=== PATIENT | male | born 1945 | race Caucasian/White ===

== ENCOUNTER 2018-04-23 07:03 | Day surgery (SDC) | payer OTHER, BC ==
[2018-04-21 17:38] VITALS: BMI 27.1
[2018-04-23] MEDS ORDERED: NEO/POLYMYX B SULF/DEXAMETH OPHTHALMIC 5ML BOTTLE ONE (07:24)
[2018-04-23] MEDS ORDERED: CARBACHOL 0.01% INTRA-OCULAR 1.5 ML VIAL ONE (07:24)
[2018-04-23] MEDS ORDERED: TETRACAINE 0.5% OPHTH SOLN 2 ML BOTTLE ONE (07:24)
[2018-04-23] MEDS ORDERED: BSS (NA/CA/MG/K) BALANCED SALT SOLUTION OPHTH SOLN 15 ML BOTTLE ONE (07:24)
[2018-04-23] MEDS ORDERED: LIDOCAINE 1% P/F 10 MG/ML VIAL ONE (07:24)
[2018-04-23] MEDS: CIPROFLOXACIN 0.3% EYE DROPS 5 ML BOTTLE ONE ×3 (07:40→07:50)
[2018-04-23] MEDS: TROPICAMIDE 1% OPHTH SOLN 15 ML BOTTLE ONE ×3 (07:40→07:50)
[2018-04-23] MEDS: CYCLOPENTOLATE 2% OPHTH SOLN 2 ML BOTTLE ONE ×3 (07:40→07:50)
[2018-04-23] MEDS: PHENYLEPHRINE 2.5% OPHTH SOLN 15 ML BOTTLE ONE ×3 (07:40→07:50)
[2018-04-23 07:44] VITALS: TEMP 97.6
[2018-04-23] MEDS ORDERED: MIDAZOLAM HCL 2 MG/2 ML SINGLE DOSE VIAL ONE ×2 (08:50→09:05)
--- NOTE | 2018-04-23 10:24 | OP ---
DATE OF OPERATION: 04/23/2018 OPERATIVE PROCEDURE: Lens Phacoemulsification with Posterior Chamber Intraocular Lens Placement Left Eye PREOPERATIVE DIAGNOSIS: Visually Significant Cataract of Left Eye POSTOPERATIVE DIAGNOSIS: Visually Significant Cataract of Left Eye SURGEON: Johan Jimenez M.D. ANESTHESIA: MAC PROCEDURE: The patient was brought to the operating room and placed under monitored anesthesia care by Anesthesia. A drop of Tetracaine was then placed over the left eye. The patient was then prepped and draped in the usual sterile manner. A speculum was then placed over the left eye. The eye was then well irrigated with copious amounts of BSS (balanced salt solution). The operating microscope was then moved into position. A paracentesis was performed using a 15 degree blade. At this point 0.5 mL of 1% preservative-free lidocaine was injected into the anterior chamber. Amvisc plus was then injected into the anterior chamber. A clear corneal incision was then formed using a 2.2 mm keratome. A capsulorrhexis was then performed in a continuous circular fashion beginning with a cystotome, completed with an Utratas forceps. Hydrodissection was then performed using BSS on a cannula. The phaco probe was then introduced through the corneal wound and the cataract was removed using the phaco chop technique. Approximately 3 seconds of absolute phaco time was used. The remaining cortex was then removed using irrigation and aspiration with an I/A probe. The capsule was then filled with regular Amvisc and the capsule was noted to be intact. A previously selected foldable posterior chamber intraocular lens was then injected into the capsule through the corneal wound using a lens injector. It was then dialed into position using a Sinskey hook. The Amvisc was then removed using irrigation and aspiration. Miostat was then injected through the paracentesis to constrict the pupil. The paracentesis and corneal wound were then hydrated and noted to be water tight. A drop of Maxitrol was then placed over the eye. The speculum was removed and clear shield was taped over the eye. The patient tolerated the procedure well and there were no surgical complications. The patient was asked to follow up in my office the next day. JOHAN JIMENEZ M.D. [id number]
[2018-04-23 10:36] VITALS: BP 130/90; PULSE 69
[2018-04-23] MEDS ORDERED: ACETAMINOPHEN 325 MG TABLET (FP) PO PRN (12:54)
[2018-04-23] MEDS ORDERED: ONDANSETRON 4 MG/2 ML VIAL IVPUSH PRN (12:54)
[2018-04-23] MEDS ORDERED: LACTATED RINGERS SOLUTION 1,000 ML IV SCH (13:00)
== END 2018-04-23 10:10 | disposition home or self-care (01) ==
LOC: FASU 07:03
PROVIDERS: ATTEND Ophthalmology
PROC: 08RK3JZ Replacement of Left Lens with Synthetic Substitute, Percutaneous Approach (ICD-10-PCS; principal; 2018-04-23 09:03)
DX: H26.8 Other specified cataract (principal)

== ENCOUNTER 2018-05-28 08:27 | Day surgery (SDC) | payer OTHER, BC ==
[2018-05-19 16:20] VITALS: BMI 26.4
[2018-05-28] MEDS: PHENYLEPHRINE 2.5% OPHTH SOLN 15 ML BOTTLE ONE ×3 (09:00→09:15)
[2018-05-28] MEDS: TROPICAMIDE 1% OPHTH SOLN 15 ML BOTTLE ONE ×3 (09:00→09:15)
[2018-05-28] MEDS: CYCLOPENTOLATE 2% OPHTH SOLN 2 ML BOTTLE ONE ×3 (09:00→09:15)
[2018-05-28] MEDS: CIPROFLOXACIN 0.3% EYE DROPS 5 ML BOTTLE ONE ×3 (09:00→09:15)
[2018-05-28 09:20] VITALS: TEMP 97.5
[2018-05-28] MEDS ORDERED: BSS (NA/CA/MG/K) BALANCED SALT SOLUTION OPHTH SOLN 15 ML BOTTLE ONE ×2 (09:22→09:23)
[2018-05-28] MEDS ORDERED: CARBACHOL 0.01% INTRA-OCULAR 1.5 ML VIAL ONE (09:22)
[2018-05-28] MEDS ORDERED: LIDOCAINE 1% P/F 10 MG/ML VIAL ONE (09:22)
[2018-05-28] MEDS ORDERED: TETRACAINE 0.5% OPHTH SOLN 2 ML BOTTLE ONE (09:22)
[2018-05-28] MEDS ORDERED: NEO/POLYMYX B SULF/DEXAMETH OPHTHALMIC 5ML BOTTLE ONE (09:22)
[2018-05-28] MEDS ORDERED: MIDAZOLAM HCL 2 MG/2 ML SINGLE DOSE VIAL ONE (10:29)
--- NOTE | 2018-05-28 11:28 | OP ---
DATE OF OPERATION: 05/28/2018 OPERATIVE PROCEDURE: Lens Phacoemulsification with Posterior Chamber Intraocular Lens Placement, Right Eye PREOPERATIVE DIAGNOSIS: Visually Significant Cataract of Right Eye POSTOPERATIVE DIAGNOSIS: Visually Significant Cataract of Right Eye SURGEON: Johan Jimenez M.D. ANESTHESIA: MAC ANESTHESIOLOGIST: PROCEDURE: The patient was brought to the operating room and placed under monitored anesthesia care by Anesthesia. A drop of Tetracaine was then placed over the right eye. The patient was then prepped and draped in the usual sterile manner. A speculum was then placed over the right eye. The eye was then well irrigated with copious amounts of BSS (balanced salt solution). The operating microscope was then moved into position. A paracentesis was performed using a 15 degree blade. At this point 0.5 mL of 1% preservative free-lidocaine was injected into the anterior chamber. Amvisc plus was then injected into the anterior chamber. A clear corneal incision was then formed using a 2.2 mm keratome. A capsulorrhexis was then performed in a continuous circular fashion beginning with a cystotome completed with an Utratas forceps. Hydrodissection was then performed using BSS on a cannula. The phaco probe was then introduced through the corneal wound and the cataract was removed using the phaco chop technique. Approximately 3 seconds of absolute phaco time was used. The remaining cortex was then removed using irrigation and aspiration with an I/A probe. The capsule was then filled with regular Amvisc and the capsule was noted to be intact. A previously selected foldable posterior chamber intraocular lens was then injected into the capsule through the corneal wound using a lens injector. It was then dialed into position using a Sinskey hook. The Amvisc was then removed using irrigation and aspiration. Miostat was then injected through the paracentesis to constrict the pupil. The paracentesis and corneal wound were then hydrated and noted to be water tight. A drop of Maxitrol was then placed over the eye. The speculum was removed and clear shield was taped over the eye. The patient tolerated the procedure well and there were no surgical complications. The patient was asked to follow up in my office the next day. JOHAN JIMENEZ M.D. [id number]
[2018-05-28 11:38] VITALS: BP 118/62; PULSE 67
== END 2018-05-28 11:40 | disposition home or self-care (01) ==
LOC: FASU 08:27
PROVIDERS: ATTEND Ophthalmology
PROC: 08RJ3JZ Replacement of Right Lens with Synthetic Substitute, Percutaneous Approach (ICD-10-PCS; principal; 2018-05-28 10:45)
DX: H26.8 Other specified cataract (principal)

== ENCOUNTER 2018-12-20 03:05 | Emergency (ER) | payer OTHER, BC ==
--- NOTE | 2018-12-20 03:08 | PDOC ---
History of Present Illness - General Chief Complaint: Urinary Problem Stated Complaint: URINARY PROBLEM Time Seen by Provider: 12/20/18 03:07 - History of Present Illness Initial Comments: 12/20/18 03:15 Pt presents to the ED complaining of the inability to urinate since 6 pm. Patient had a urolift done by Dr. Luna and was discharged with almanza in place. Almanza was removed this afternoon. Patient had small amount of urine earlier in the day, but hasn't been able to urinate since 6 pm. He states that he has the urge to urinate but is unable to. Now is complaining of some abdominal distention and discomfort. Denies fever, nausea or vomiting. Did have hematuria after removal of the almanza. Past History - Past Medical History Allergies/Adverse Reactions: Allergies Allergy/AdvReac Type Severity Reaction Status Date / Time cinnamon Allergy Rash Verified 04/23/18 07:57 No Known Drug Allergies Allergy Verified 04/23/18 07:57 Home Medications: Ambulatory Orders Aspirin [ASA -] 81 mg PO DAILY 07/24/12 B-Complex with Vitamin C [Vitamin B-Complex & C] 1 each PO DAILY 07/24/12 Cholecalciferol (Vitamin D3) [Vitamin D3] 2,000 unit PO DAILY 07/24/12 Garlic 1 each PO DAILY 07/24/12 Lactobacillus Acidophilus [Acidophilus] 1 each PO DAILY 07/24/12 Metoprolol Succinate [Toprol XL -] 25 mg PO DAILY 07/24/12 Docosahexanoic Acid/Epa [Fish Oil Softgel] 1 each PO DAILY 04/27/13 Phytosterol [Heart Health Advantage] 400 mg PO BID 04/27/13 Plant Stanol Christa [Cholest Off] 900 mg PO BID 04/27/13 Glucosamine Sulfate Dipot Chlr [Glucosamine] 1,000 mg PO BID 04/21/18 Mirabegron [Myrbetriq] 50 mg PO DAILY 04/21/18 Omeprazole 40 mg PO DAILY 04/21/18 Potassium 99 mg PO DAILY 04/21/18 Rosuvastatin Calcium [Crestor] 5 mg PO DAILY 04/21/18 Tamsulosin HCl 0.4 mg PO DAILY 04/21/18 Ubidecarenone [Coq10] 50 mg PO DAILY 04/21/18 Anemia: No Asthma: No Cancer: No Cardiac Disorders: Yes (IA 05/2010, STENT X 1-LAST STRESS 2010) CVA: No COPD: No CHF: No Dementia: No Diabetes: No GI Disorders: Yes (GERD) Disorders: Yes (bph) HTN: Yes Hypercholesterolemia: Yes Liver Disease: No Seizures: No Thyroid Disease: No - Surgical History Abdominal Surgery: No Appendectomy: No Cardiac Surgery: Yes (CARDIAC STENT X 1 2010) Cholecystectomy: No Lung Surgery: No Neurologic Surgery: No Orthopedic Surgery: Yes (RIGHT KNEE ARTHROSCOPY-10 YRS AGO-) - Suicide/Smoking/Psychosocial Hx Smoking History: Never smoked Have you smoked in the past 12 months: No Hx Alcohol Use: No Drug/Substance Use Hx: No Substance Use Type: None Hx Substance Use Treatment: No Review of Systems - Review of Systems Able to Perform ROS?: Yes Is the patient limited [place] proficient: No Constitutional: No: Symptoms Reported, See HPI, Chills, Diaphoresis, Fever, Loss of Appetite, Malaise, Night Sweats, Weakness, Weight Stable, Unintentional Wgt. Loss, Unexplained wgt Loss, Other HEENTM: No: Symptoms Reported, See HPI, Eye Pain, Blurred Vision, Tearing, Recent change in vision, Double Vision, Cataracts, Ear Pain, Ocular Prothesis, Ear Discharge, Nose Pain, Nose Congestion, Tinnitus, Nose Bleeding, Hearing Loss , Throat Pain, Throat Swelling, Mouth Pain, Dental Problems, Difficulty Swallowing, Mouth Swelling, Other Respiratory: No: Symptoms reported, See HPI, Cough, Orthopnea, Shortness of Breath, SOB with Exertion, SOB at Rest, Stridor, Wheezing, Productive cough, Hemoptysis, Other Cardiac (ROS): No: Symptoms Reported, See HPI, Chest Pain, Edema, Irregular Heart Rate, Lightheadedness, Palpitations, Syncope, Chest Tightness, Other ABD/GI: Yes: Abdominal Distended. No: See HPI, Abd. Pain w/ defecation, Blood Streaked Bowels, Constipated, Diarrhea, Difficulty Swallowing, Nausea, Poor Appetite, Poor Fluid Intake, Rectal Bleeding, Vomiting, Indigestion, Abdominal cramping, Tarry Stools, Other : Yes: See HPI Musculoskeletal: No: Symptoms Reported, See HPI, Back Pain, Gout, Joint Pain, Joint Swelling, Muscle Pain, Muscle Weakness, Neck Pain, Joint Stiffness, Other Integumentary: No: Symptoms Reported, See HPI, Bruising, Change in Color, Change in Hair/Nails, Dryness, Erythema, Flushing, Lesions, Lumps, Pallor, Pruritus, Rash, Sweating, Other Neurological: No: Symptoms reported, See HPI, Headache, Numbness, Paresthesia, Pre-Existing Deficit, Seizure, Tingling, Tremors, Weakness, Unsteady Gait, Ataxia, Dizziness, Other Psychiatric: No: Anxiety, Depression, Frequent Crying, Stressors, Sleep Pattern Change, Emotional Problems, Mood Swings, Change in Appetite, Other All Other Systems: Reviewed and Negative *Physical Exam - Physical Exam Comments: 12/20/18 03:20 Gen: alert, NAD CV: rrr no murmurs pulm: cta b/l abdomen: soft, non tender, non distended without guarding or rebound Neuro: alert and oriented x 3, normal mood and affect. ext: no deformity, full ROM, ambulatory with normal gait skin: warm and dry, no rash, pallor or jaundice Medical Decision Making - Medical Decision Making 12/20/18 03:21 Pt presents to the ED complaining of urinary retention since 6 pm after almanza d/ c'd in urologist's office. Will place almanza in the ED and measure urine output. 12/20/18 03:34 Almanza placed with aproximately 300 ccc in urine drained immediately. urine is dark red, but with no clots. will discharge home with leg bag. *DC/Admit/Observation/Transfer Diagnosis at time of Disposition: Urinary retention - Discharge Dispostion Disposition: HOME Condition at time of disposition: Good Decision to Admit order: No - Referrals - Patient Instructions Printed Discharge Instructions: DI for Urinary Retention in Men Additional Instructions: you came to the ED because you were unable to urinate. We placed a catheter in the ED. you should follow up with Dr. Luna on Saturday--he will decide whether the catheter can come out. Return to the ED immediately if the catheter gets pulled out or stops draining urine. Return to the ED for fever, abdominal pain, other new or worsening symptoms. - Post Discharge Activity
[2018-12-20 03:15] VITALS: BP 124/65; PULSE 89; TEMP 98.1; BMI 33.0
== END 2018-12-20 03:58 | disposition home or self-care (01) ==
LOC: FER 03:05
PROC: 0T9B70Z Drainage of Bladder with Drainage Device, Via Natural or Artificial Opening (ICD-10-PCS; principal; 2018-12-20)
DX: R33.9 Retention of urine, unspecified (principal); Z95.5 Presence of coronary angioplasty implant and graft; I25.2 Old myocardial infarction; K21.9 Gastro-esophageal reflux disease without esophagitis; N40.0 Benign prostatic hyperplasia without lower urinary tract symptoms; I10 Essential (primary) hypertension; E78.00 Pure hypercholesterolemia, unspecified
CPT/HCPCS: 99282-25

== ENCOUNTER 2018-12-20 19:52 | Emergency (ER) | payer OTHER, BC ==
[2018-12-20 20:06] VITALS: BP 145/94; PULSE 90; TEMP 98.1; BMI 27.1
--- NOTE | 2018-12-21 00:09 | PDOC ---
Documentation entered by Chela Castro SCRIBE, acting as scribe for Marsha Lay MD. Marsha Lay MD: This documentation has been prepared by the vineetibeMatthew Lincy, SCRIBE, under my direction and personally reviewed by me in its entirety. I confirm that the documentation accurately reflects all work, treatment, procedures, and medical decision making performed by me. History of Present Illness - General Chief Complaint: Urinary Catheter Problem Stated Complaint: WARREN CATHETER PROBLEM Time Seen by Provider: 12/20/18 19:53 History Source: Patient Exam Limitations: No Limitations - History of Present Illness Initial Comments: 12/20/18 21:12 The patient is a 73-year-old male with a past medical history significant for IA s/p stent, BPH, HTN, HLD, s/p urolift (12/[address] Godinez) presents to the emergency department with difficulty urinating since this morning. The patient reports he had a urolift on Saturday, s/p placed on a leg bag, which was removed on Saturday morning. He was able to void x2 since removing the bag, however at 6:00 pm that day he noticed some clots in the urine and since noticing the clots, he was unable to urinate. The patient was seen at the ER at 2:00 am, for difficulty urinating and was placed on a leg bag, with improvement. The patient reports relief until he emptied the bag in the morning , and noticed some dysuria. The patient reports since emptying the bag, he hasn t voided. The patient reports associated symptoms of pelvic pressure. Denies new back pain, fever, or chills. Past History - Past Medical History Allergies/Adverse Reactions: Allergies Allergy/AdvReac Type Severity Reaction Status Date / Time cinnamon Allergy Rash Verified 12/20/18 19:54 No Known Drug Allergies Allergy Verified 12/20/18 19:54 Home Medications: Ambulatory Orders B-Complex with Vitamin C [Vitamin B-Complex & C] 1 each PO DAILY 07/24/12 Cholecalciferol (Vitamin D3) [Vitamin D3] 2,000 unit PO DAILY 07/24/12 Garlic 1 each PO DAILY 07/24/12 Lactobacillus Acidophilus [Acidophilus] 1 each PO DAILY 07/24/12 Metoprolol Succinate [Toprol XL -] 25 mg PO DAILY 07/24/12 Docosahexanoic Acid/Epa [Fish Oil Softgel] 1 each PO DAILY 04/27/13 Phytosterol [Heart Health Advantage] 400 mg PO BID 04/27/13 Plant Stanol Christa [Cholest Off] 900 mg PO BID 04/27/13 Glucosamine Sulfate Dipot Chlr [Glucosamine] 1,000 mg PO BID 04/21/18 Mirabegron [Myrbetriq] 50 mg PO DAILY 04/21/18 Omeprazole 40 mg PO DAILY 04/21/18 Rosuvastatin Calcium [Crestor] 5 mg PO DAILY 04/21/18 Tamsulosin HCl 0.4 mg PO DAILY 04/21/18 Ubidecarenone [Coq10] 50 mg PO DAILY 04/21/18 Anemia: No Asthma: No Cancer: No Cardiac Disorders: Yes (IA 05/2010, STENT X 1-LAST STRESS 2010) CVA: No COPD: No CHF: No Dementia: No Diabetes: No GI Disorders: Yes (GERD) Disorders: Yes (bph) HTN: Yes Hypercholesterolemia: Yes Liver Disease: No Seizures: No Thyroid Disease: No - Surgical History Abdominal Surgery: No Appendectomy: No Cardiac Surgery: Yes (CARDIAC STENT X 1 2010) Cholecystectomy: No Lung Surgery: No Neurologic Surgery: No Orthopedic Surgery: Yes (RIGHT KNEE ARTHROSCOPY-10 YRS AGO-) - Suicide/Smoking/Psychosocial Hx Smoking History: Never smoked Have you smoked in the past 12 months: No Information on smoking cessation initiated: No Hx Alcohol Use: No Drug/Substance Use Hx: No Substance Use Type: None Hx Substance Use Treatment: No Review of Systems - Review of Systems Able to Perform ROS?: Yes Comments:: 12/20/18 21:12 Constitutional - Pt denies Fever, Chills, weakness, HEENT: denies vision changes, sore throat Respiratory: Denies cough, sob, hemoptysis Cardiac: denies chest pain, palpitations, lightheadedness, leg swelling Abd/GI: denies abd pain, nausea, vomiting, blood per rectum, melena, diarrhea : +difficulty voiding. denies dysuria, frequency, discharge Musculoskeletal - denies back pain, joint swelling skin - denies bruising, erythema, rash neurological: denies headache, numbness, focal weakness, tingling, ataxia, weakness hematologic: denies anemia, easy bruising, easy bleeding *Physical Exam - Vital Signs Last Vital Signs Temp Pulse Resp BP Pulse Ox 98.1 F 90 18 145/94 96 12/20/18 19:52 12/20/18 19:52 12/20/18 19:52 12/20/18 19:52 12/20/18 19:52 - Physical Exam Comments: 12/20/18 21:18 Physical exam performed after irrigation of the catheter with subsequent relief of urinary retention. GENERAL: The patient is awake, alert, and fully oriented, in no acute distress. HEAD: Normal with no signs of trauma. EYES: Pupils equal, round and reactive to light, extraocular movements intact, sclera anicteric, conjunctiva clear with no pallor. ENT: Ears normal, nares patent. Moist mucous membranes. NECK: Normal range of motion, supple. LUNGS: Breath sounds equal, clear to auscultation bilaterally. HEART: Regular rate and rhythm. ABDOMEN: +soft, nondistended without tenderness or masses. EXTREMITIES: Normal range of motion, no edema. no clubbing or cyanosis. No cords , erythema, or tenderness. NEUROLOGICAL: Normal speech, normal gait. PSYCH: Normal mood, normal affect. SKIN: Warm, Dry, normal turgor, no rashes or lesions noted. Medical Decision Making - Medical Decision Making As noted above, this 73-year-old man, a few days s/p urolift procedure returns with urinary retention. Patient was seen here last night with urinary retention and catheter was placed with relief of his symptoms. He did well for most of today with recurrence of sensation of inability to empty his bladder starting several hours ago. He had noted some blood clots in the bag. He denies abdominal pain/back pain/fever/nausea. He is currently on antibiotics after his procedure (cannot recall the name of the antibiotic). Exam as noted. Under sterile conditions, catheter was irrigated with sterile normal saline by nursing staff with passage of some clots. After this, patient had resumption of normal urinary flow and resolution of his symptoms. Approximately 300 mL of urine was obtained in the leg bag attached to the catheter. Patient will be discharged with instructions to continue drinking plenty of water and taking his medications as prescribed. He should return to the emergency room if he has any recurrent urinary retention at which time the catheter would probably need to be replaced. Also, he has development of abdominal or back pain/nausea or vomiting/fever, he should return to the ER. Otherwise, he should follow-up with Dr. Luna on December 22 *DC/Admit/Observation/Transfer Diagnosis at time of Disposition: Urinary retention - Discharge Dispostion Disposition: HOME Condition at time of disposition: Stable - Referrals Referrals: Benton Godinez MD., MD [Staff Physician] - - Patient Instructions Printed Discharge Instructions: DI for Urinary Retention in Men Additional Instructions: continue antibiotic as previously prescribed Drink plenty of water Return to ER if you have discomfort/difficulty passing urine follow-up with /call office on December 22 as discussed - Post Discharge Activity
== END 2018-12-20 21:09 | disposition home or self-care (01) ==
LOC: FER 19:52
DX: Z46.6 Encounter for fitting and adjustment of urinary device (principal); R33.9 Retention of urine, unspecified; I10 Essential (primary) hypertension; E78.00 Pure hypercholesterolemia, unspecified; N40.0 Benign prostatic hyperplasia without lower urinary tract symptoms; I25.2 Old myocardial infarction; Z95.5 Presence of coronary angioplasty implant and graft
CPT/HCPCS: 99283-25

== ENCOUNTER 2018-12-21 13:55 | Emergency (ER) | payer OTHER, BC ==
--- NOTE | 2018-12-21 13:58 | PDOC ---
History of Present Illness - General Chief Complaint: Urinary Catheter Problem Stated Complaint: WARREN CATHETER PROBLEM Time Seen by Provider: 12/21/18 13:57 History Source: Patient Exam Limitations: No Limitations Past History - Past Medical History Allergies/Adverse Reactions: Allergies Allergy/AdvReac Type Severity Reaction Status Date / Time cinnamon Allergy Rash Verified 12/21/18 13:56 No Known Drug Allergies Allergy Verified 12/21/18 13:56 Home Medications: Ambulatory Orders B-Complex with Vitamin C [Vitamin B-Complex & C] 1 each PO DAILY 07/24/12 Cholecalciferol (Vitamin D3) [Vitamin D3] 2,000 unit PO DAILY 07/24/12 Garlic 1 each PO DAILY 07/24/12 Lactobacillus Acidophilus [Acidophilus] 1 each PO DAILY 07/24/12 Metoprolol Succinate [Toprol XL -] 25 mg PO DAILY 07/24/12 Docosahexanoic Acid/Epa [Fish Oil Softgel] 1 each PO DAILY 04/27/13 Phytosterol [Heart Health Advantage] 400 mg PO BID 04/27/13 Plant Stanol Christa [Cholest Off] 900 mg PO BID 04/27/13 Glucosamine Sulfate Dipot Chlr [Glucosamine] 1,000 mg PO BID 04/21/18 Mirabegron [Myrbetriq] 50 mg PO DAILY 04/21/18 Omeprazole 40 mg PO DAILY 04/21/18 Rosuvastatin Calcium [Crestor] 5 mg PO DAILY 04/21/18 Tamsulosin HCl 0.4 mg PO DAILY 04/21/18 Ubidecarenone [Coq10] 50 mg PO DAILY 04/21/18 Anemia: No Asthma: No Cancer: No Cardiac Disorders: Yes (ID 05/2010, STENT X 1-LAST STRESS 2010) CVA: No COPD: No CHF: No Dementia: No Diabetes: No GI Disorders: Yes (GERD) Disorders: Yes (bph) HTN: Yes Hypercholesterolemia: Yes Liver Disease: No Seizures: No Thyroid Disease: No - Surgical History Abdominal Surgery: No Appendectomy: No Cardiac Surgery: Yes (CARDIAC STENT X 1 2010) Cholecystectomy: No Lung Surgery: No Neurologic Surgery: No Orthopedic Surgery: Yes (RIGHT KNEE ARTHROSCOPY-10 YRS AGO-) - Suicide/Smoking/Psychosocial Hx Smoking History: Never smoked Have you smoked in the past 12 months: No Hx Alcohol Use: No Drug/Substance Use Hx: No Substance Use Type: None Hx Substance Use Treatment: No *DC/Admit/Observation/Transfer - Discharge Dispostion Condition at time of disposition: Stable - Referrals - Patient Instructions - Post Discharge Activity
[2018-12-21 14:19] VITALS: BP 130/84; PULSE 87; TEMP 98.5; BMI 27.1
--- NOTE | 2018-12-21 14:43 | PDOC ---
Documentation entered by Garret Hernandez SCRIBE, acting as scribe for Jeannine Torres MD. Jeannine Torres MD: This documentation has been prepared by the David medina Nirvannie, SCRIBE, under my direction and personally reviewed by me in its entirety. I confirm that the documentation accurately reflects all work, treatment, procedures, and medical decision making performed by me. History of Present Illness - General Chief Complaint: Urinary Catheter Problem Stated Complaint: WARREN CATHETER PROBLEM Time Seen by Provider: 12/21/18 13:57 History Source: Patient Exam Limitations: No Limitations - History of Present Illness Initial Comments: 12/21/18 14:36 The patient is a 73 year old male, with a significant past medical history of IA (s/p cardiac stenting), BPH (s/p urolift 12/[address] Godinez), HTN, HLD, who presents to the emergency department with, urinary retention. As per patient , after his surgery 5 days ago he had a leg bag placed which was removed 3 days ago and replaced 2 days ago after a similar episode of urinary retention and then a repeat episode last night. Patient notes observing blood clots in his bag last night, however, this morning he was unable to void once again. Patient endorses associated dysuria and urgency, prompting his arrival to the ED. He denies any recent fevers, chills, headache, or dizziness. He denies any recent nausea, vomiting, diarrhea, or constipation. He denies any recent chest pain or shortness of breath. Allergies: Cinnamon. Past surgical history: Urolift (11/2018), Cardiac Stenting, and Right Knee Arthroscopy Social History: Nonsmoker. Denies EtOH use and recreational drug use. Urologist: Dr. Godinez Past History - Past Medical History Allergies/Adverse Reactions: Allergies Allergy/AdvReac Type Severity Reaction Status Date / Time cinnamon Allergy Rash Verified 12/21/18 13:56 No Known Drug Allergies Allergy Verified 12/21/18 13:56 Home Medications: Ambulatory Orders B-Complex with Vitamin C [Vitamin B-Complex & C] 1 each PO DAILY 07/24/12 Cholecalciferol (Vitamin D3) [Vitamin D3] 2,000 unit PO DAILY 07/24/12 Garlic 1 each PO DAILY 07/24/12 Lactobacillus Acidophilus [Acidophilus] 1 each PO DAILY 07/24/12 Metoprolol Succinate [Toprol XL -] 25 mg PO DAILY 07/24/12 Docosahexanoic Acid/Epa [Fish Oil Softgel] 1 each PO DAILY 04/27/13 Phytosterol [Heart Health Advantage] 400 mg PO BID 04/27/13 Plant Stanol Christa [Cholest Off] 900 mg PO BID 04/27/13 Glucosamine Sulfate Dipot Chlr [Glucosamine] 1,000 mg PO BID 04/21/18 Mirabegron [Myrbetriq] 50 mg PO DAILY 04/21/18 Omeprazole 40 mg PO DAILY 04/21/18 Rosuvastatin Calcium [Crestor] 5 mg PO DAILY 04/21/18 Tamsulosin HCl 0.4 mg PO DAILY 04/21/18 Ubidecarenone [Coq10] 50 mg PO DAILY 04/21/18 Anemia: No Asthma: No Cancer: No Cardiac Disorders: Yes ([place] 05/2010, STENT X 1-LAST STRESS 2010) CVA: No COPD: No CHF: No Dementia: No Diabetes: No GI Disorders: Yes (GERD) Disorders: Yes (bph) HTN: Yes Hypercholesterolemia: Yes Liver Disease: No Seizures: No Thyroid Disease: No - Surgical History Abdominal Surgery: No Appendectomy: No Cardiac Surgery: Yes (CARDIAC STENT X 1 2010) Cholecystectomy: No Lung Surgery: No Neurologic Surgery: No Orthopedic Surgery: Yes (RIGHT KNEE ARTHROSCOPY-10 YRS AGO-) - Suicide/Smoking/Psychosocial Hx Smoking History: Never smoked Have you smoked in the past 12 months: No Information on smoking cessation initiated: No Hx Alcohol Use: No Drug/Substance Use Hx: No Substance Use Type: None Hx Substance Use Treatment: No Review of Systems - Review of Systems Able to Perform ROS?: Yes Comments:: 12/21/18 14:36 GENERAL/CONSTITUTIONAL: No fever or chills. No weakness. HEAD, EYES, EARS, NOSE AND THROAT: No change in vision. No ear pain or discharge. No sore throat. CARDIOVASCULAR: No chest pain or shortness of breath. RESPIRATORY: No cough, wheezing, or hemoptysis. GASTROINTESTINAL: No nausea, vomiting, diarrhea or constipation. GENITOURINARY: +Retention. +Urgency. +Dysuria. MUSCULOSKELETAL: No joint or muscle swelling or pain. No neck or back pain. SKIN: No rash. NEUROLOGIC: No headache, vertigo, loss of consciousness, or change in strength/ sensation. ENDOCRINE: No increased thirst. No abnormal weight change. HEMATOLOGIC/LYMPHATIC: No anemia, easy bleeding, or history of blood clots. ALLERGIC/IMMUNOLOGIC: No hives or skin allergy. All Other Systems: Reviewed and Negative *Physical Exam - Vital Signs Last Vital Signs Temp Pulse Resp BP Pulse Ox 98.5 F 87 18 130/84 100 12/21/18 13:55 12/21/18 13:55 12/21/18 13:55 12/21/18 13:55 12/21/18 13:55 - Physical Exam Comments: 12/21/18 14:37 GENERAL: Awake, alert, and fully oriented, in no acute distress HEAD: No signs of trauma EYES: PERRLA, EOMI, sclera anicteric, conjunctiva clear ENT: Auricles normal inspection, hearing grossly normal, nares patent, oropharynx clear without exudates. Moist mucosa NECK: Normal ROM, supple, no lymphadenopathy, JVD, or masses LUNGS: Breath sounds equal, clear to auscultation bilaterally. No wheezes, and no crackles HEART: Regular rate and rhythm, normal S1 and S2, no murmurs, rubs or gallops ABDOMEN: Soft, nontender, normoactive bowel sounds. No guarding, no rebound. No masses EXTREMITIES: Normal range of motion, no edema. No clubbing or cyanosis. No cords, erythema, or tenderness NEUROLOGICAL: Cranial nerves II through XII grossly intact. Normal speech, normal gait. Motor and sensation intact SKIN: Warm, Dry, normal turgor, no rashes or lesions noted : Warren in place with leg bag, draining tea-colored urine Medical Decision Making - Medical Decision Making 12/21/18 14:38 Warren catheter irrigated with 60 cc sterile water, quickly returned to normal function with passage of tea-colored urine. It was irrigated with an additional 190 cc of sterile water with passage of very small clots. After irrigation, clear urine return confirmed. Stable for DC home. *DC/Admit/Observation/Transfer Diagnosis at time of Disposition: Warren catheter problem Qualifiers: Encounter type: initial encounter Qualified Code(s): T83.9XXA - Unspecified complication of genitourinary prosthetic device, implant and graft, initial encounter - Discharge Dispostion Disposition: HOME Condition at time of disposition: Stable Decision to Admit order: No - Referrals - Patient Instructions Printed Discharge Instructions: How to Care for Your Warren Catheter -- Male - Post Discharge Activity
== END 2018-12-21 14:48 | disposition home or self-care (01) ==
LOC: FER 13:55
DX: T83.9XXA Unspecified complication of genitourinary prosthetic device, implant and graft, initial encounter (principal); Z46.6 Encounter for fitting and adjustment of urinary device; X58.XXXA Exposure to other specified factors, initial encounter; Y92.9 Unspecified place or not applicable; I10 Essential (primary) hypertension; E78.00 Pure hypercholesterolemia, unspecified; Z95.5 Presence of coronary angioplasty implant and graft; I25.2 Old myocardial infarction; N40.0 Benign prostatic hyperplasia without lower urinary tract symptoms; K21.9 Gastro-esophageal reflux disease without esophagitis
CPT/HCPCS: 99283-25

== ENCOUNTER 2018-12-21 22:21 | Emergency (ER) | payer OTHER, BC ==
[2018-12-21] MEDS ORDERED: OXYBUTYNIN CHLORIDE 5 MG TABLET PO ONE (22:26)
[2018-12-21 22:35] VITALS: BP 114/84; PULSE 84; TEMP 98.2; BMI 27.7
--- NOTE | 2018-12-21 23:56 | PDOC ---
Documentation entered by Garret Hernandez SCRIBE, acting as scribe for Lexx Huggins MD. Lexx Huggins MD: This documentation has been prepared by the David medina Nirvannie, SCRIBE, under my direction and personally reviewed by me in its entirety. I confirm that the documentation accurately reflects all work, treatment, procedures, and medical decision making performed by me. History of Present Illness - General Chief Complaint: Urinary Catheter Problem Stated Complaint: URINARY RETENTION Time Seen by Provider: 12/21/18 22:25 History Source: Patient Exam Limitations: No Limitations - History of Present Illness Initial Comments: 12/21/18 22:31 CC: Urinary Retention The patient is a 73 year old male, with a significant past medical history of NM (s/p cardiac stenting), BPH (s/p urolift 12/[address] Godinez), HTN, HLD, who presents to the emergency department with, urinary retention. As per patient , after his surgery 5 days ago he had a leg bag placed which was removed 3 days ago and replaced 2 days ago after a similar episode of urinary retention with 3 repeat episodes (2 episodes yesterday and 1 episode earlier today). Patient endorses associated dysuria and urgency, prompting his arrival to the ED. He denies any recent fevers, chills, headache, or dizziness. He denies any recent nausea, vomiting, diarrhea, or constipation. He denies any recent chest pain or shortness of breath. Allergies: Cinnamon. Past surgical history: Urolift (11/2018), Cardiac Stenting, and Right Knee Arthroscopy Social History: Nonsmoker. Denies EtOH use and recreational drug use. Urologist: Dr. Godinez Past History - Past Medical History Allergies/Adverse Reactions: Allergies Allergy/AdvReac Type Severity Reaction Status Date / Time cinnamon Allergy Rash Verified 12/21/18 13:56 No Known Drug Allergies Allergy Verified 12/21/18 13:56 Home Medications: Ambulatory Orders B-Complex with Vitamin C [Vitamin B-Complex & C] 1 each PO DAILY 07/24/12 Cholecalciferol (Vitamin D3) [Vitamin D3] 2,000 unit PO DAILY 07/24/12 Garlic 1 each PO DAILY 07/24/12 Lactobacillus Acidophilus [Acidophilus] 1 each PO DAILY 07/24/12 Metoprolol Succinate [Toprol XL -] 25 mg PO DAILY 07/24/12 Docosahexanoic Acid/Epa [Fish Oil Softgel] 1 each PO DAILY 04/27/13 Phytosterol [Heart Health Advantage] 400 mg PO BID 04/27/13 Plant Stanol Christa [Cholest Off] 900 mg PO BID 04/27/13 Glucosamine Sulfate Dipot Chlr [Glucosamine] 1,000 mg PO BID 04/21/18 Mirabegron [Myrbetriq] 50 mg PO DAILY 04/21/18 Omeprazole 40 mg PO DAILY 04/21/18 Rosuvastatin Calcium [Crestor] 5 mg PO DAILY 04/21/18 Tamsulosin HCl 0.4 mg PO DAILY 04/21/18 Ubidecarenone [Coq10] 50 mg PO DAILY 04/21/18 Oxybutynin Chloride [Ditropan -] 5 mg PO TID #12 tablet.er 12/21/18 Anemia: No Asthma: No Cancer: No Cardiac Disorders: Yes ([place] 05/2010, STENT X 1-LAST STRESS 2010) CVA: No COPD: No CHF: No Dementia: No Diabetes: No GI Disorders: Yes (GERD) Disorders: Yes (bph) HTN: Yes Hypercholesterolemia: Yes Liver Disease: No Seizures: No Thyroid Disease: No - Surgical History Abdominal Surgery: No Appendectomy: No Cardiac Surgery: Yes (CARDIAC STENT X 1 2010) Cholecystectomy: No Lung Surgery: No Neurologic Surgery: No Orthopedic Surgery: Yes (RIGHT KNEE ARTHROSCOPY-10 YRS AGO-) - Suicide/Smoking/Psychosocial Hx Smoking History: Never smoked Have you smoked in the past 12 months: No Hx Alcohol Use: No Drug/Substance Use Hx: No Substance Use Type: None Hx Substance Use Treatment: No Review of Systems - Review of Systems Able to Perform ROS?: Yes Comments:: 12/21/18 22:31 ROS: A complete review of 10 out of 10 review of systems is taken and is negative apart from what is previously mentioned below and in the HPI. *Physical Exam - Vital Signs Last Vital Signs Temp Pulse Resp BP Pulse Ox 98.2 F 84 14 114/84 96 12/21/18 22:29 12/21/18 22:29 12/21/18 22:29 12/21/18 22:29 12/21/18 22:29 - Physical Exam Comments: 12/21/18 22:31 Exam: Vitals: Triage Vital signs reviewed General Appearance: no acute distress, well nourished well developed, Head: Atraumatic, normocephalic Neck: Supple;No Nuchal rigidity Abdomen: Soft, nondistended, normal bowel sounds, nontender to palpation Rectal: Exam deferred :+Solano leg bag in place draining concentrated brown urine. Extremities: Full range of motion to all extremities, no cyanosis, clubbing, or edema Skin: Warm and dry, no rashes or lesions, no petechiae Neuro: AOX3; Cranial Nerves 2-12 grossly intact. Psych: normal mood, normal affect ED Treatment Course - Medications Given in the ED: ED Medications Discontinued Medications Generic Name Dose Route Start Last Admin Trade Name Freq PRN Reason Stop Dose Admin Oxybutynin Chloride 5 mg 12/21/18 22:26 12/21/18 22:48 Ditropan - PO 12/21/18 22:27 5 mg ONCE ONE Administration Medical Decision Making - Medical Decision Making 12/21/18 22:32 73 year old male, with a significant past medical history of NM (s/p cardiac stenting), BPH (s/p urolift 12/[address] Godinez), HTN, HLD, who presents to the emergency department with, bladder pain Plan is: Irrigate catheter Ditropan Reassess 12/21/18 23:53 Patient feels much better after dipped for pain. Now pain-free. Patient only experiences this pain with change in position this is likely secondary to the recent urinary procedure. I have irrigated his Solano at the bedside there is no evidence obstruction it is draining appropriately We will prescribed a trip and patient will call his urologist in the morning Findings, need for follow-up and strict return instructions discussed with patient. *DC/Admit/Observation/Transfer Diagnosis at time of Disposition: Bladder spasm - Discharge Dispostion Disposition: HOME Condition at time of disposition: Good Decision to Admit order: No - Referrals Referrals: Benton Godinez MD., MD [Staff Physician] - - Patient Instructions Printed Discharge Instructions: How to Care for Your Solano Catheter -- Male Additional Instructions: Ditropan as prescribed. Tomorrow morning call your urologist. Return to the ED for any concerns. - Post Discharge Activity
== END 2018-12-22 00:18 | disposition home or self-care (01) ==
LOC: FER 22:21
DX: N32.89 Other specified disorders of bladder (principal); I10 Essential (primary) hypertension; E78.00 Pure hypercholesterolemia, unspecified; N40.0 Benign prostatic hyperplasia without lower urinary tract symptoms; I25.2 Old myocardial infarction; Z95.0 Presence of cardiac pacemaker
CPT/HCPCS: 99282-25

== ENCOUNTER 2018-12-25 03:32 | Emergency (ER) | payer OTHER, BC ==
[2018-12-25 03:41] VITALS: BP 156/85; PULSE 88; TEMP 98.3; BMI 27.1
--- NOTE | 2018-12-25 03:42 | PDOC ---
History of Present Illness - General Chief Complaint: Urinary Problem Stated Complaint: INABILITY TO URINATE Time Seen by Provider: 12/25/18 03:40 History Source: Patient Exam Limitations: No Limitations - History of Present Illness Initial Comments: 12/25/18 03:41 This is a 73-year-old male who is status post a urological procedure approximately one week ago. Patient now comes in because he is in acute urinary retention. Patient has had urinary retention since the procedure secondary to blood in the urine. Patient had a Solano placed on Saturday was removed yesterday and now he is back again with urinary retention. Allergies: as per nursing notes Past Medical History: none Social history: Lives with family. No smoking. No alcohol. No illicit drugs. Surgical history: None General: No fevers or chills, no weakness, no weight loss HEENT: No change in vision. No sore throat,. No ear pain CardioVascular: no chest discomfort. No shortness of breath Respiratory:No cough, or wheezing. Gastrointestinal: no nausea, vomiting, diarrhea or constipation, No rectal bleeding Genitourinary: + urinary retention Musculoskeletal: No joint or muscle pain or swelling Neurologic: No headache, vertigo, dizziness or loss of consciousness Psychiatric: nor depression Skin: No rashes or easy bruising Endocrine: no increased thirst or abnormal weight change Allergic: no skin or latex allergy All other systems reviewed and normal GENERAL: The patient is awake, alert, and fully oriented, in no acute distress. HEAD: Normal with no signs of trauma. EYES: Pupils equal, round and reactive to light, extraocular movements intact, sclera anicteric, conjunctiva clear. EXTREMITIES:atraumatic, Normal range of motion, no edema. NEUROLOGICAL: Normal speech, normal gait. PSYCH: Normal mood, normal affect. SKIN: Warm, Dry, normal turgor, no rashes or lesions noted. 12/25/18 20:52 A 16 Russian Solano was placed, with approximately 300 mL or urine. Patient felt much better Solano continued to drain patient discharged home with a leg bag and will follow-up with his primary care doctor Past History - Past Medical History Allergies/Adverse Reactions: Allergies Allergy/AdvReac Type Severity Reaction Status Date / Time cinnamon Allergy Rash Verified 12/25/18 03:35 No Known Drug Allergies Allergy Verified 12/25/18 03:35 Home Medications: Ambulatory Orders B-Complex with Vitamin C [Vitamin B-Complex & C] 1 each PO DAILY 07/24/12 Cholecalciferol (Vitamin D3) [Vitamin D3] 2,000 unit PO DAILY 07/24/12 Garlic 1 each PO DAILY 07/24/12 Lactobacillus Acidophilus [Acidophilus] 1 each PO DAILY 07/24/12 Metoprolol Succinate [Toprol XL -] 25 mg PO DAILY 07/24/12 Docosahexanoic Acid/Epa [Fish Oil Softgel] 1 each PO DAILY 04/27/13 Phytosterol [Heart Health Advantage] 400 mg PO BID 04/27/13 Plant Stanol Christa [Cholest Off] 900 mg PO BID 04/27/13 Glucosamine Sulfate Dipot Chlr [Glucosamine] 1,000 mg PO BID 04/21/18 Mirabegron [Myrbetriq] 50 mg PO DAILY 04/21/18 Omeprazole 40 mg PO DAILY 04/21/18 Rosuvastatin Calcium [Crestor] 5 mg PO DAILY 04/21/18 Tamsulosin HCl 0.4 mg PO DAILY 04/21/18 Ubidecarenone [Coq10] 50 mg PO DAILY 04/21/18 Oxybutynin Chloride [Ditropan -] 5 mg PO TID #12 tablet.er 12/21/18 Anemia: No Asthma: No Cancer: No Cardiac Disorders: Yes ([place] 05/2010, STENT X 1-LAST STRESS 2010) CVA: No COPD: No CHF: No Dementia: No Diabetes: No GI Disorders: Yes (GERD) Disorders: Yes (bph) HTN: Yes Hypercholesterolemia: Yes Liver Disease: No Seizures: No Thyroid Disease: No - Surgical History Abdominal Surgery: No Appendectomy: No Cardiac Surgery: Yes (CARDIAC STENT X 1 2010) Cholecystectomy: No Lung Surgery: No Neurologic Surgery: No Orthopedic Surgery: Yes (RIGHT KNEE ARTHROSCOPY-10 YRS AGO-) - Suicide/Smoking/Psychosocial Hx Smoking History: Never smoked Have you smoked in the past 12 months: No Number of Cigarettes Smoked Daily: 0 Hx Alcohol Use: No Drug/Substance Use Hx: No Substance Use Type: None Hx Substance Use Treatment: No *DC/Admit/Observation/Transfer Diagnosis at time of Disposition: Urinary retention - Discharge Dispostion Disposition: HOME Condition at time of disposition: Stable - Referrals Referrals: Benton Godinez MD., MD [Primary Care Provider] - - Patient Instructions Additional Instructions: Follow-up with the urologist today. Return to the emergency department immediately with ANY new, persistent or worsening symptoms. Continue any medications as previously prescribed by your physician. You should follow up with your primary doctor as soon as possible regarding today's emergency department visit. . Please make sure your doctor reviews the results of your emergency evaluation. Thank you for coming to the Emergency Department today for your care. It was a pleasure to see you today. Please note that your evaluation is INCOMPLETE until you follow-up with your doctor. - Post Discharge Activity
== END 2018-12-25 04:10 | disposition home or self-care (01) ==
LOC: FER 03:32
PROC: 0T9B70Z Drainage of Bladder with Drainage Device, Via Natural or Artificial Opening (ICD-10-PCS; principal; 2018-12-25)
DX: R33.9 Retention of urine, unspecified (principal); I10 Essential (primary) hypertension; E78.00 Pure hypercholesterolemia, unspecified; I25.2 Old myocardial infarction; K21.9 Gastro-esophageal reflux disease without esophagitis; N40.0 Benign prostatic hyperplasia without lower urinary tract symptoms; Z95.5 Presence of coronary angioplasty implant and graft
CPT/HCPCS: 99281-25

== ENCOUNTER 2020-06-15 10:26 | Day surgery (SDC) | payer OTHER, BC ==
[2020-06-13 16:14] VITALS: BMI 27.8
[2020-06-15] MEDS ORDERED: MIDAZOLAM HCL 2 MG/2 ML SINGLE DOSE VIAL ONE (12:34)
[2020-06-15] MEDS ORDERED: PROPOFOL 20 ML ONE (12:34)
[2020-06-15] MEDS ORDERED: ONDANSETRON 4 MG/2 ML VIAL ONE (12:44)
[2020-06-15] MEDS ORDERED: DEXAMETHASONE SOD PHOSPHATE 4 MG/1 ML VIAL ONE (12:44)
[2020-06-15] MEDS ORDERED: KETOROLAC TROMETHAMINE 30 MG/1 ML VIAL ONE (12:44)
[2020-06-15] MEDS ORDERED: LIDOCAINE HCL 2% (50ML VIAL) INF ONE (12:57)
[2020-06-15 13:27] VITALS: TEMP 97.9
[2020-06-15 13:39] VITALS: BP 129/69
[2020-06-15 13:55] VITALS: PULSE 67
== END 2020-06-15 13:54 | disposition home or self-care (01) ==
LOC: FASU 10:26
PROVIDERS: ATTEND Orthopaedic Surgery Hand Surgery
PROC: 01N50ZZ Release Median Nerve, Open Approach (ICD-10-PCS; principal; 2020-06-15 12:53)
DX: G56.01 Carpal tunnel syndrome, right upper limb (principal)